=== PATIENT | female | born 1970 | race African-American/Black ===

== ENCOUNTER 2022-09-01 10:57 | Inpatient (IN) ==
[2022-09-01] MEDS ORDERED: ACETAMINOPHEN 500 MG TABLET PO STA (11:06)
[2022-09-01 17:10] LABS: Basophils % 0.5 % (0.0-0.8); Eosinophils # 0.2 10*3/uL (0.0-0.87); Hematocrit 26.8 VOL% (35.7-47.0); Hemoglobin 7.9 GM/DL (12.0-16.0); Immature Granulocytes % 0.7 %; Immature Granulocytes Absolute 0.06 #; Lymphocytes # 1.6 10*3/uL (1.4-4.0); Lymphocytes % 18.7 % (21.3-54.2); Mean Corpuscular HGB Conc 29.5 GM/DL (32-36); Mean Corpuscular Volume 79.3 FL (87-102); Mean Platelet Volume 10.5 FL (9.6-12.0); Monocytes # 0.8 10*3/uL (0.11-0.8); Monocytes % 9.8 % (1.7-12.7); NRBC # 0.02 10*3/uL; Neutrophils % 68.3 % (38.7-73.9); Platelet Count 305 T/CUMM (130-400); Red Blood Count 3.38 MC/CUMM (3.8-5.5); Red Cell Distribution Width 22.1 % (9.3-17.3); White Blood Count 8.3 T/CUMM (4-12)
[2022-09-01 17:18] LABS: Albumin 3.2 G/DL (3.4-5.0); Bilirubin,Total 0.4 MG/DL (0.20-1.00); Calcium 9.1 MG/DL (8.5-10.1); Potassium 3.2 MMOL/L (3.5-5.1)
[2022-09-01 17:31] LABS: Urine Appearance Cloudy (Clear); Urine Color Yellow (Yellow)
[2022-09-01 17:32] LABS: Bilirubin,Urine Negative (Negative); Blood, Urine Moderate mg/dL (Negative); Glucose,Urine (UA) >=1000 mg/dL (Negative); Ketones,Urine Negative (Negative); Nitrite,Urine Negative (Negative); Protein,Urine >=300 mg/dL (Negative); Urine Specific Gravity 1.015 (1.001-1.035); Urine Urobilinogen 0.2 eU/dL (<2.0); Urine pH 6.5 (4.5-8.0)
[2022-09-01 17:39] LABS: RBC,Urine 194 /HPF (0-4); Squamous Epithelial Cell,Urine Occasional /HPF (0-10)
[2022-09-01] MEDS ORDERED: IBUPROFEN 600 MG TABLET PO STA (18:18)
[2022-09-01] MEDS ORDERED: cefTRIAXone 1,000 MG in SODIUM CHLORIDE 0.9% 100 ML IV STA (18:33)
[2022-09-01] MEDS ORDERED: LACTATED RINGERS 2,000 ML IV ONE (20:09)
[2022-09-01] MEDS ORDERED: SODIUM CHLORIDE 0.9% 1,000 ML IV STA (20:09)
[2022-09-01] MEDS ORDERED: LEVOFLOXACIN INJ 500 MG/100 ML PREMIX IV SCH (20:30)
[2022-09-01] MEDS ORDERED: GLUCAGON 1 MG VIAL IM PRN (20:55)
[2022-09-01] MEDS ORDERED: ALUMINUM/MAGNES/SIMETH MAX STR 30 ML UDCUP PO PRN (20:55)
[2022-09-01] MEDS ORDERED: DEXTROSE 10% 250 ML BAG IV PRN (20:55)
[2022-09-01] MEDS ORDERED: ONDANSETRON 4 MG/2 ML VIAL IV PRN (20:55)
[2022-09-01] MEDS ORDERED: DEXTROSE 50% 25 GM/50 ML VIAL IV PRN (20:55)
[2022-09-01] MEDS: POTASSIUM CHLORIDE 20 MEQ TABLET PO PRN ×2 (21:05→23:11)
[2022-09-01] MEDS: DOCUSATE SODIUM 100 MG CAPSULE PO SCH (22:17)
[2022-09-01] MEDS: INSULIN REGULAR 100 UNIT/ML SUBCUT SCH (22:32)
[2022-09-02] MEDS ORDERED: MAGNESIUM SULF RIDER 2 GM/50 ML PREMIX IV ONE
[2022-09-02] MEDS: SODIUM CHLORIDE 0.9% 1,000 ML IV SCH ×2 (03:00→12:47)
[2022-09-02 04:41] LABS: Basophils % 0.4 % (0.0-0.8); Eosinophils # 0.2 10*3/uL (0.0-0.87); Eosinophils % 3.1 % (0.00-10.9); Hematocrit 21.3 VOL% (35.7-47.0); Immature Granulocytes % 0.4 %; Immature Granulocytes Absolute 0.03 #; Lymphocytes # 1.1 10*3/uL (1.4-4.0); Lymphocytes % 14.7 % (21.3-54.2); Mean Corpuscular HGB Conc 28.2 GM/DL (32-36); Mean Corpuscular Volume 80.7 FL (87-102); Mean Platelet Volume 10.9 FL (9.6-12.0); Monocytes # 0.8 10*3/uL (0.11-0.8); Monocytes % 10.6 % (1.7-12.7); NRBC # 0.03 10*3/uL; Neutrophils % 70.8 % (38.7-73.9); Platelet Count 256 T/CUMM (130-400); Red Blood Count 2.64 MC/CUMM (3.8-5.5); Red Cell Distribution Width 21.9 % (9.3-17.3); White Blood Count 7.4 T/CUMM (4-12)
[2022-09-02 05:05] LABS: Folate 15.26 NG/ML (5.38-24.0); Vitamin B12 660 PG/ML (211-911)
[2022-09-02 05:09] LABS: Osmolality,Calculated 288.3 MOS/KG (273-304); Potassium 3.6 MMOL/L (3.5-5.1); Thyroid Stimulating Hormone 1.22 uIU/ml (0.358-3.74)
[2022-09-02 05:15] LABS: % Iron Saturation 5.9 % (18-50); Ferritin 86.4 ng/mL (8-252)
[2022-09-02 06:05] LABS: Sedimentation Rate-Westergren 128 MM/HR (0-30)
[2022-09-02 06:21] LABS: Hematocrit 25.3 VOL% (35.7-47.0); Hemoglobin 7.1 GM/DL (12.0-16.0)
[2022-09-02 07:20] LABS: Anisocytosis 1+; Band Neutrophils 17 % (0-10); Eosinophils 5 % (0-10); Lymphocytes 14 % (20-55); Nucleated Red Blood Cells 1 /100 WBC (0-5); Platelet Estimate Normal; Total Cells Counted 100
[2022-09-02 07:21] LABS: Hypochromia 1+; Macrocytosis Slight
[2022-09-02] MEDS: DOCUSATE SODIUM 100 MG CAPSULE PO SCH ×2 (08:22→20:32)
[2022-09-02] MEDS: PANTOPRAZOLE 40 MG TABLET PO SCH (08:22)
[2022-09-02] MEDS: INSULIN REGULAR 100 UNIT/ML SUBCUT SCH ×4 (08:22→20:33)
[2022-09-02] MEDS ORDERED: cefTRIAXone 2,000 MG in SODIUM CHLORIDE 0.9% 100 ML IV ONE (10:06)
[2022-09-02] MEDS: MORPHINE 2 MG/1 ML SYRINGE IV PRN ×2 (12:48→19:00)
[2022-09-02] MEDS ORDERED: diphenhydrAMINE 50 MG/1 ML VIAL IV PRN (13:08)
[2022-09-02] MEDS: ACETAMINOPHEN 325 MG TABLET PO PRN (19:02)
[2022-09-02] MEDS: INSULIN GLARGINE 100 UNIT/ML SUBCUT SCH (20:33)
[2022-09-02] MEDS ORDERED: LEVOFLOXACIN INJ 750 MG/150 ML PREMIX IV SCH (22:00)
[2022-09-03] MEDS: MORPHINE 2 MG/1 ML SYRINGE IV PRN (03:05)
[2022-09-03 05:37] LABS: Basophils % 0.3 % (0.0-0.8); Eosinophils # 0.2 10*3/uL (0.0-0.87); Eosinophils % 1.8 % (0.00-10.9); Immature Granulocytes % 0.7 %; Immature Granulocytes Absolute 0.07 #; Lymphocytes # 1.4 10*3/uL (1.4-4.0); Lymphocytes % 14.9 % (21.3-54.2); Mean Corpuscular HGB Conc 28.2 GM/DL (32-36); Mean Corpuscular Volume 81.2 FL (87-102); Mean Platelet Volume 10.9 FL (9.6-12.0); Monocytes # 1.1 10*3/uL (0.11-0.8); Monocytes % 11.2 % (1.7-12.7); NRBC # 0.04 10*3/uL; Neutrophils % 71.1 % (38.7-73.9); Platelet Count 252 T/CUMM (130-400); Red Blood Count 2.71 MC/CUMM (3.8-5.5); Red Cell Distribution Width 22.1 % (9.3-17.3); White Blood Count 9.5 T/CUMM (4-12)
[2022-09-03 05:45] LABS: Hemoglobin 6.2 GM/DL (12.0-16.0)
[2022-09-03] MEDS ORDERED: SODIUM CHLORIDE 0.9% 1,000 ML IV PRN (05:50)
[2022-09-03 05:51] LABS: Calcium 7.9 MG/DL (8.5-10.1); Potassium 3.8 MMOL/L (3.5-5.1)
[2022-09-03 07:10] LABS: Anisocytosis 1+; Platelet Estimate Normal
[2022-09-03 07:11] LABS: Ovalocytes Few; Target Cells Few
[2022-09-03] MEDS: ACETAMINOPHEN 325 MG TABLET PO PRN (07:38)
[2022-09-03] MEDS: SODIUM CHLORIDE 0.9% 1,000 ML IV SCH ×3 (07:49→19:37)
[2022-09-03] MEDS ORDERED: MAGNESIUM OXIDE 400 MG TABLET PO ONE (07:57)
[2022-09-03] MEDS: INSULIN REGULAR 100 UNIT/ML SUBCUT SCH ×4 (08:43→20:55)
[2022-09-03] MEDS: PANTOPRAZOLE 40 MG TABLET PO SCH ×2 (08:43→20:54)
[2022-09-03] MEDS: DOCUSATE SODIUM 100 MG CAPSULE PO SCH ×2 (08:43→20:54)
[2022-09-03] MEDS: CALCIUM (CARBONATE)/VITAMIN D 600 MG-400 UNIT TABLET PO SCH ×2 (08:44→20:54)
[2022-09-03 12:01] LABS: Hepatitis B Core IgM Quant 0.07 Index; Hepatitis B Surface Ag Quant < 0.10 Index; Hepatitis B Surface Ag Result Non-Reactive (NonReactive); Hepatitis C Virus Ab Quant < 0.02 Index; Hepatitis C Virus Ab Result Non-Reactive (NonReactive)
[2022-09-03] MEDS: FERRIC GLUCONATE COMPLEX 125 MG in SODIUM CHLORIDE 0.9% 100 ML IV SCH (12:09)
[2022-09-03] MEDS ORDERED: FUROSEMIDE 40 MG/4 ML VIAL IV ONE (15:18)
[2022-09-03] MEDS: cefTRIAXone 2,000 MG in SODIUM CHLORIDE 0.9% 100 ML IV SCH (16:08)
[2022-09-03] MEDS ORDERED: PANTOPRAZOLE 40 MG TABLET PO ONE (19:59)
[2022-09-03] MEDS: INSULIN GLARGINE 100 UNIT/ML SUBCUT SCH (20:55)
[2022-09-04 05:53] LABS: Basophils # 0.1 10*3/uL (0.0-0.2); Basophils % 0.5 % (0.0-0.8); Calcium 8.6 MG/DL (8.5-10.1); Eosinophils # 0.2 10*3/uL (0.0-0.87); Eosinophils % 2.6 % (0.00-10.9); Hematocrit 27.6 VOL% (35.7-47.0); Immature Granulocytes % 1.4 %; Immature Granulocytes Absolute 0.13 #; Lymphocytes # 1.6 10*3/uL (1.4-4.0); Lymphocytes % 17.2 % (21.3-54.2); Mean Corpuscular HGB Conc 30.8 GM/DL (32-36); Mean Corpuscular Volume 80.9 FL (87-102); Mean Platelet Volume 11.2 FL (9.6-12.0); Monocytes # 1.3 10*3/uL (0.11-0.8); Monocytes % 14.3 % (1.7-12.7); NRBC # 0.05 10*3/uL; Platelet Count 230 T/CUMM (130-400); Potassium 3.8 MMOL/L (3.5-5.1); White Blood Count 9.2 T/CUMM (4-12)
[2022-09-04 05:56] LABS: Hemoglobin 8.5 GM/DL (12.0-16.0); Red Blood Count 3.41 MC/CUMM (3.8-5.5)
[2022-09-04] MEDS: INSULIN REGULAR 100 UNIT/ML SUBCUT SCH ×4 (07:25→20:29)
[2022-09-04] MEDS ORDERED: propofoL 200 MG/20 ML VIAL IV ONE (08:51)
[2022-09-04] MEDS ORDERED: LIDOCAINE 2% 5 ML VIAL ONE (08:51)
[2022-09-04] MEDS ORDERED: LACTATED RINGERS 1,000 ML IV SCH (09:30)
[2022-09-04] MEDS: PANTOPRAZOLE 40 MG TABLET PO SCH ×2 (10:10→20:28)
[2022-09-04] MEDS: CALCIUM (CARBONATE)/VITAMIN D 600 MG-400 UNIT TABLET PO SCH ×2 (10:10→20:28)
[2022-09-04] MEDS: cefTRIAXone 2,000 MG in SODIUM CHLORIDE 0.9% 100 ML IV SCH (10:10)
[2022-09-04] MEDS: DOCUSATE SODIUM 100 MG CAPSULE PO SCH ×2 (10:10→20:28)
[2022-09-04] MEDS: FERRIC GLUCONATE COMPLEX 125 MG in SODIUM CHLORIDE 0.9% 100 ML IV SCH (10:14)
[2022-09-04] MEDS: MORPHINE 2 MG/1 ML SYRINGE IV PRN (10:15)
[2022-09-04] MEDS: BISACODYL 5 MG TABLET PO SCH ×2 (11:51→18:28)
[2022-09-04] MEDS ORDERED: POLYETHYLENE GLYCOL POWDER 255 GM BOTTLE PO ONE (18:00)
[2022-09-04] MEDS: INSULIN GLARGINE 100 UNIT/ML SUBCUT SCH (20:29)
[2022-09-04] MEDS ORDERED: MAGNESIUM HYDROXIDE SUSP 30 ML UDCUP PO ONE (21:00)
[2022-09-05] MEDS: BISACODYL 5 MG TABLET PO SCH (03:58)
[2022-09-05 05:49] LABS: Basophils # 0.1 10*3/uL (0.0-0.2); Basophils % 0.7 % (0.0-0.8); Eosinophils # 0.4 10*3/uL (0.0-0.87); Eosinophils % 5.4 % (0.00-10.9); Hemoglobin 9.5 GM/DL (12.0-16.0); Immature Granulocytes % 1.4 %; Immature Granulocytes Absolute 0.11 #; Lymphocytes # 1.9 10*3/uL (1.4-4.0); Lymphocytes % 25.1 % (21.3-54.2); Mean Corpuscular HGB Conc 30.6 GM/DL (32-36); Mean Corpuscular Volume 79.9 FL (87-102); Mean Platelet Volume 10.2 FL (9.6-12.0); Monocytes % 12.7 % (1.7-12.7); NRBC # 0.03 10*3/uL; Neutrophils % 54.7 % (38.7-73.9); Platelet Count 228 T/CUMM (130-400); Red Blood Count 3.88 MC/CUMM (3.8-5.5); Red Cell Distribution Width 21.8 % (9.3-17.3); White Blood Count 7.6 T/CUMM (4-12)
[2022-09-05 06:10] LABS: Hypochromia 1+; Microcytosis 1+; Target Cells Slight
[2022-09-05 06:11] LABS: Anisocytosis 1+; Polychromasia Slight
[2022-09-05 06:29] LABS: Calcium 8.6 MG/DL (8.5-10.1); Osmolality,Calculated 282.1 MOS/KG (273-304); Potassium 2.9 MMOL/L (3.5-5.1)
[2022-09-05] MEDS ORDERED: LACTATED RINGERS 1,000 ML IV SCH (07:00)
[2022-09-05] MEDS: INSULIN REGULAR 100 UNIT/ML SUBCUT SCH ×2 (07:18→11:54)
[2022-09-05] MEDS ORDERED: POTASSIUM CHLORIDE RIDER 10 MEQ/100 ML PREMIX IV ONE ×2 (07:21→08:00)
[2022-09-05] MEDS ORDERED: LIDOCAINE 2% 5 ML VIAL ONE (08:37)
[2022-09-05] MEDS ORDERED: propofoL 200 MG/20 ML VIAL IV ONE ×2 (08:37→08:48)
[2022-09-05] MEDS: cefTRIAXone 2,000 MG in SODIUM CHLORIDE 0.9% 100 ML IV SCH (10:04)
[2022-09-05] MEDS: PANTOPRAZOLE 40 MG TABLET PO SCH (10:05)
[2022-09-05] MEDS: CALCIUM (CARBONATE)/VITAMIN D 600 MG-400 UNIT TABLET PO SCH (10:05)
[2022-09-05] MEDS ORDERED: MAGNESIUM SULF RIDER 2 GM/50 ML PREMIX IV ONE (11:00)
[2022-09-05 11:46] VITALS: BP 173/75
[2022-09-05] MEDS: FERRIC GLUCONATE COMPLEX 125 MG in SODIUM CHLORIDE 0.9% 100 ML IV SCH (11:51)
== END 2022-09-05 15:00 | disposition home health service (06) | DRG 812 ==
LOC: N.ED 10:57 → N.EDINP 20:55 → SUATTDRO 20:55 → N.EDINP 21:57 → N.2E 22:13
PROVIDERS: ADMIT Internal Medicine; ATTEND Emergency Medicine